=== PATIENT | male | born 2000 | race Caucasian/White ===

== ENCOUNTER 2023-01-12 02:35 | Emergency (ER) | payer BC ==
[2023-01-12] MEDS ORDERED: Acetaminophen 500 MG TAB ONE (02:58)
[2023-01-12] MEDS ORDERED: Ondansetron ODT 4 MG TAB ONE (02:58)
[2023-01-12] MEDS ORDERED: Ketorolac Tromethamine 30 MG/ML VIAL ONE (03:33)
[2023-01-12] MEDS ORDERED: Boostrix 0.5 ML (Tdap) VIAL (>/=7 yrs of age) ONE (04:26)
== END 2023-01-12 04:47 | disposition home or self-care (01) ==
LOC: ERS 02:35
DX: S09.90XA Unspecified injury of head, initial encounter (principal); F10.129 Alcohol abuse with intoxication, unspecified; Y90.9 Presence of alcohol in blood, level not specified; Z23 Encounter for immunization
CPT/HCPCS: 70450; 72125; 90471; 90715; 96374; J1885; Q0162

== ENCOUNTER 2023-01-13 09:55 | Emergency (ER) | payer BC ==
[2023-01-13] MEDS ORDERED: Acetaminophen 500 MG TAB ONE (12:18)
== END 2023-01-13 12:20 | disposition home or self-care (01) ==
LOC: ERS 09:55
DX: S09.90XA Unspecified injury of head, initial encounter (principal); S02.91XA Unspecified fracture of skull, initial encounter for closed fracture; I60.9 Nontraumatic subarachnoid hemorrhage, unspecified; W10.9XXA Fall (on) (from) unspecified stairs and steps, initial encounter
CPT/HCPCS: 70450